=== PATIENT | female | born 1975 | race Caucasian/White ===

== ENCOUNTER 2017-05-31 19:26 | Emergency (ER) | payer BC, OTHER ==
[~2017-05-31] VITALS: Ht 162.6 cm; Wt 84.1 kg
[~2017-05-31 19:26] MED LIST: HYDR25TA5 PO; IMT100 PO; LXP10 PO; MULT-506 PO
[2017-05-31 19:36] VITALS: TEMP 36.7; Ht 162.6 cm; Wt 84.1 kg
--- NOTE | 2017-05-31 20:56 | DIAGNOSTIC IMAGING REPORT ---
CHEST ONE VIEW PORTABLE HISTORY: 42 years-old Female CHEST PAIN acute atypical chest pain COMPARISON: Chest radiograph 09/28/2014 TECHNIQUE: Portable upright AP view of the chest FINDINGS: Cardiomediastinal and hilar silhouettes are within normal limits. There is no pneumothorax, pleural effusion, focal airspace consolidation or overt pulmonary edema. The bones of the chest appear grossly intact. IMPRESSION: No acute cardiopulmonary process. The above report was generated using voice recognition software. It may contain grammatical, syntax or spelling errors. Electronically signed by: Anton Smith M.D. 05/31/2017 8:55 PM Dictated Date/Time: 05/31/2017 8:54 PM
--- NOTE | 2017-05-31 21:33 | EMERGENCY ROOM VISIT NOTE ---
History Report prepared by Jonas: Kimi Staples Under the Supervision of: Dr. Pancho Simpson D.O. First contact with patient: 19:42 Chief Complaint: CARDIAC ASSESSMENT Stated Complaint: CHEST PAIN/DISCOLORATION OF FINGERS History of Present Illness The patient is a 42 year old female who presents to the Emergency Room with complaints of intermittent chest pain for the past 2 weeks. The patient called her PCP and was sent to the ED because of her family history. Her father at age 49 of a heart attack. Her older sister had a stroke at age 46. Her mother has CHF. 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 She was not working with anything cold. The purple in her fingers has resolved. She is currently having some chest pain. It is in the middle of her chest. She is nauseous. She denies any SOB. She has a history of sleep apnea, migraine, GERD, and gastric sleeve. She has not had alcohol in 1 year. She quit smoking 10 years ago. Her last menstrual period was normal timing 2 weeks ago. She has had a work up for her heart in the past. Source of History: patient Onset: 2 weeks ago Position: chest (mid) Quality: other (pain) Timing: intermittent Associated Symptoms: + nausea, No SOB Note: Pt reports an episode of purple fingers. Review of Systems See HPI for pertinent positives & negatives. A total of 10 systems reviewed and were otherwise negative. Past Medical & Surgical Medical Problems: (1) GERD (gastroesophageal reflux disease) (2) Sleep apnea Family History Diabetes mellitus FH: heart disease FHx: cancer Hypertension Social History Smoking Status: Former Smoker Alcohol Use: occasionally Housing Status: lives with family Occupation Status: employed Current/Historical Medications Scheduled Escitalopram Oxalate (Escitalopram Oxalate), 10 MG PO DAILY Hydrochlorothiazide (Hydrochlorothiazide), 25 MG PO DAILY Multivitamin (Multivitamin), 1 TAB PO DAILY Scheduled PRN Sumatriptan Succinate (Imitrex), 100 MG PO UD PRN for Migraine Allergies Coded Allergies: Topiramate (Verified Allergy, Unknown, Tingling of face., 05/31/17) Reported by PT. Physical Exam Vital Signs Date Time Temp Pulse Resp B/P (MAP) Pulse Ox O2 Delivery O2 Flow Rate FiO2 05/31/17 23:18 65 18 133/76 100 Room Air 05/31/17 22:01 110/75 05/31/17 22:00 64 17 100 05/31/17 21:31 129/72 05/31/17 21:30 73 17 100 05/31/17 21:08 70 20 118/73 98 Room Air 05/31/17 21:01 Room Air 05/31/17 21:01 Room Air 05/31/17 19:58 92 05/31/17 19:36 36.7 78 18 122/79 97 Room Air Physical Exam GENERAL: Patient is awake, alert, somewhat anxious appearing, but comfortable. EYES: The conjunctivae are clear. The pupils are round and reactive. EARS, NOSE, MOUTH AND THROAT: The nose is without any evidence of any deformity. Mucous membranes are moist tongue is midline NECK: The neck is nontender and supple. RESPIRATORY: Normal respiratory effort is noted there is no evidence of wheezing rhonchi or rales CARDIOVASCULAR: Regular rate and rhythm noted there no murmurs rubs or gallops normal S1 normal S2 GASTROINTESTINAL: The abdomen is soft. Bowel sounds are present in all quadrants. Abdomen is nontender MUSCULOSKELETAL/EXTREMITIES: There is no evidence of gross deformity full range of motion is noted in the hips and shoulders SKIN: There is no obvious evidence of any rash. There are no petechiae, pallor or cyanosis noted. NEUROLOGIC: Patient is awake alert and oriented x3 Medical Decision & Procedures ER Provider Diagnostic Interpretation: X-ray results as stated below per interpretation by me and the radiologist. CHEST ONE VIEW PORTABLE HISTORY: 42 years-old Female CHEST PAIN acute atypical chest pain COMPARISON: Chest radiograph 09/28/2014 TECHNIQUE: Portable upright AP view of the chest FINDINGS: Cardiomediastinal and hilar silhouettes are within normal limits. There is no pneumothorax, pleural effusion, focal airspace consolidation or overt pulmonary edema. The bones of the chest appear grossly intact. IMPRESSION: No acute cardiopulmonary process. The above report was generated using voice recognition software. It may contain grammatical, syntax or spelling errors. Electronically signed by: Anton Smith M.D. 05/31/2017 8:55 PM Dictated Date/Time: 05/31/2017 8:54 PM Laboratory Results 05/31/17 20:39 Red Blood Count 4.73, Mean Corpuscular Volume 91.5, Mean Corpuscular Hemoglobin 30.9, Mean Corpuscular Hemoglobin Concent 33.7, Mean Platelet Volume 10.8, Neutrophils (%) (Auto) 53.0, Lymphocytes (%) (Auto) 39.0, Monocytes (%) (Auto) 6.2, Eosinophils (%) (Auto) 1.3, Basophils (%) (Auto) 0.4, Neutrophils # (Auto) 4.01, Lymphocytes # (Auto) 2.95, Monocytes # (Auto) 0.47, Eosinophils # (Auto) 0.10, Basophils # (Auto) 0.03 05/31/17 20:39 Test 05/31/17 19:51 05/31/17 20:39 Creatine Kinase MB Ratio (0-3.0) White Blood Count 7.57 K/uL (4.8-10.8) Red Blood Count 4.73 M/uL (4.2-5.4) Hemoglobin 14.6 g/dL (12.0-16.0) Hematocrit 43.3 % (37-47) Mean Corpuscular Volume 91.5 fL (80-100) Mean Corpuscular Hemoglobin 30.9 pg (25-34) Mean Corpuscular Hemoglobin Concent 33.7 g/dl (32-36) Platelet Count 290 K/uL (130-400) Mean Platelet Volume 10.8 fL (7.4-10.4) Neutrophils (%) (Auto) 53.0 % Lymphocytes (%) (Auto) 39.0 % Monocytes (%) (Auto) 6.2 % Eosinophils (%) (Auto) 1.3 % Basophils (%) (Auto) 0.4 % Neutrophils # (Auto) 4.01 K/uL (1.4-6.5) Lymphocytes # (Auto) 2.95 K/uL (1.2-3.4) Monocytes # (Auto) 0.47 K/uL (0.11-0.59) Eosinophils # (Auto) 0.10 K/uL (0-0.5) Basophils # (Auto) 0.03 K/uL (0-0.2) RDW Standard Deviation 41.7 fL (36.4-46.3) RDW Coefficient of Variation 12.4 % (11.5-14.5) Immature Granulocyte % (Auto) 0.1 % Immature Granulocyte # (Auto) 0.01 K/uL (0.00-0.02) Anion Gap 8.0 mmol/L (3-11) Est Creatinine Clear Calc Drug Dose 111.5 ml/min Estimated GFR () 124.4 Estimated GFR (Non- 107.4 BUN/Creatinine Ratio 16.1 (10-20) Calcium Level 9.1 mg/dl (8.5-10.1) Total Bilirubin 0.5 mg/dl (0.2-1) Direct Bilirubin mg/dl (0-0.2) Aspartate Amino Transf (AST/SGOT) U/L (15-37) Alanine Aminotransferase (ALT/SGPT) 26 U/L (12-78) Alkaline Phosphatase 60 U/L (45-117) Total Creatine Kinase U/L (26-192) Creatine Kinase MB 0.7 ng/ml (0.5-3.6) Troponin I < 0.015 ng/ml (0-0.045) Total Protein 8.0 gm/dl (6.4-8.2) Albumin 3.9 gm/dl (3.4-5.0) Lipase 117 U/L (73-393) Laboratory results per my review. ECG Indication: chest pain Rate (beats per minute): 72 Rhythm: normal sinus Findings: T-wave inversion (Inferior), no ectopy Comparison ECG Date: 28-Sep-2014 Change: no significant change ED Course 1947: The patient was evaluated in room C3. A complete history and physical examination were performed. 2300: Upon reevaluation, the patient is resting comfortably. I discussed the results and treatment plan with her. I offered admission and she declined. She verbalized agreement of the treatment plan. She was discharged home. Medical Decision Prior records/ancillary studies reviewed. Triage Nursing notes reviewed. The patient's history was concerning for chest pain. Differential diagnosis: Etiologies such as cardiac ischemia, aortic dissection, pulmonary embolism, pneumonia, pneumothorax, musculoskeletal, infections, pericarditis, myocarditis , esophageal rupture, gastrointestinal, as well as others were entertained. The patient is a 42-year-old female who presented to emergency department for an evaluation of ongoing chest discomfort. The patient had ongoing chest discomfort for a few days. She states the pain is been constant with fluctuations throughout the day. His EKG did not show any acute changes. Her cardiac biomarkers negative. I discussed the patient's laboratory and radiographic studies with her. I also discussed the limitations of the emergency department workup for chest pain with her. Given her family history I offered to have her evaluated by the hospitalist for further inpatient management including serial troponin draws and a stress test if the troponin stays negative. The patient did not wish to stay in the hospital she preferred to follow-up with her primary care physician. The patient was encouraged to rest and avoid any strenuous activity. She was also encouraged to continue all medications as prescribed and return to the emergency department immediately if symptoms change worsen or the need arises. Medication Reconcilliation Current Medication List: was personally reviewed by me Blood Pressure Screening Patient's blood pressure: Normal blood pressure Blood pressure disposition: Did not require urgent referral Impression Primary Impression: Chest pain Scribe Attestation The scribe's documentation has been prepared under my direction and personally reviewed by me in its entirety. I confirm that the note above accurately reflects all work, treatment, procedures, and medical decision making performed by me. Departure Information Dispostion Home / Self-Care Referrals Kaitlin Almendarez M.D. (PCP) Forms IMPORTANT VISIT INFORMATION Patient Instructions ED Chest Pain Atypical Unkn Cause, [facility] Additional Instructions Call your family in the morning to schedule a follow-up appointment. Rest and avoid any strenuous activity. Continue all medications as prescribed. Return to the emergency department immediately if symptoms change worsen or the need arises. Problem Qualifiers Primary Impression: Chest pain Chest pain type: unspecified Qualified Codes: R07.9 - Chest pain, unspecified
[2017-05-31 22:14] LABS: BASO % 0.4 %; BASO ABS # 0.03 K/uL (0-0.2); COMPLETE YES; EOS % 1.3 %; HEMATOCRIT 43.3 % (37-47); IG% 0.1 %; LYMPH ABS # 2.95 K/uL (1.2-3.4); MEAN CELL VOLUME 91.5 fL (80-100); MEAN CORPUSCULAR HEMOGLOBIN 30.9 pg (25-34); MEAN CORPUSCULAR HGB CONC 33.7 g/dl (32-36); MEAN PLATELET VOLUME 10.8 fL (7.4-10.4); MONO % 6.2 %; PLATELET COUNT 290 K/uL (130-400); RED BLOOD COUNT 4.73 M/uL (4.2-5.4); WHITE BLOOD COUNT 7.57 K/uL (4.8-10.8)
[2017-05-31 22:21] LABS: ALKALINE PHOSPHATASE 60 U/L (45-117); ALT/SGPT 26 U/L (12-78); BLOOD UREA NITROGEN 11 mg/dl (7-18); BUN/CREATININE RATIO 16.1 (10-20); CALCIUM 9.1 mg/dl (8.5-10.1); CARBON DIOXIDE 26 mmol/L (21-32); CHLORIDE 107 mmol/L (98-107); CREATININE 0.69 mg/dl (0.60-1.20); GLUCOSE 79 mg/dl (70-99); SODIUM 141 mmol/L (136-145)
[2017-05-31 23:18] VITALS: BP 133/76; PULSE 65; O2SAT 100
== END 2017-05-31 23:26 | disposition home or self-care (01) ==
LOC: C.EDB 19:29 → C.EDC 23:26
DX: R07.9 Chest pain, unspecified (principal); Z87.891 Personal history of nicotine dependence; Z98.84 Bariatric surgery status; Z83.3 Family history of diabetes mellitus; Z82.49 Family history of ischemic heart disease and other diseases of the circulatory system; Z82.3 Family history of stroke